=== PATIENT | female | born 1940 | race Caucasian/White ===

== ENCOUNTER 2022-09-29 07:28 | Day surgery (SDC) | payer MEDICARE, BC ==
[~2022-09-29] VITALS: Ht 162.6 cm; Wt 59.0 kg
[2022-09-29 07:45] VITALS: BP 113/57
[2022-09-29] MEDS ORDERED: fentaNYL/PF 50MCG/1 ML 2ML syringe ONE (07:51)
[2022-09-29] MEDS ORDERED: MIDAZolam 1 MG/ML 5ML VIAL ONE (07:51)
[2022-09-29] MEDS ORDERED: ATOR40TA PO (07:55)
[2022-09-29] MEDS ORDERED: NITR0.4T48 SL (07:56)
[2022-09-29] MEDS ORDERED: ATOR20TA66 PO (07:57)
[2022-09-29] MEDS ORDERED: IBAN150T21 PO ×2 (07:58→07:59)
[2022-09-29 09:10] VITALS: BP 130/70
[2022-09-29 09:20] VITALS: BP 120/64
[2022-09-29 09:30] VITALS: BP 130/75
[2022-09-29 09:40] VITALS: BP 119/64
== END 2022-09-29 09:45 | disposition home or self-care (01) ==
LOC: GI LAB 07:28
PROVIDERS: ATTEND Specialist
DX: K59.00 Constipation, unspecified (principal); D12.8 Benign neoplasm of rectum; K64.8 Other hemorrhoids; Z86.010 Personal history of colon polyps; Z88.0 Allergy status to penicillin; Z88.5 Allergy status to narcotic agent; Z80.0 Family history of malignant neoplasm of digestive organs
CPT/HCPCS: 45385; C1889; G0500; J2250; J3010; J7030; Z7512; 88305; 99152; 99153; A4620

== ENCOUNTER 2024-01-24 08:08 | Emergency (ER) | payer MEDICARE, BC ==
[~2024-01-24] VITALS: Ht 162.6 cm; Wt 56.5 kg
[~2024-01-24 08:08] MED LIST: ATOR20TA66 PO; IBAN150T21 PO; NITR0.4T48 SL
[2024-01-24 08:11] VITALS: TEMP 99
[2024-01-24] MEDS ORDERED: pantoprazole 40 MG vial IV ONE (09:15)
[2024-01-24] MEDS: ondansetron/PF 4mg/2ml inj IM ONE (09:23)
[2024-01-24] MEDS: pantoprazole 40mg Tablet.DR PO ONE (09:49)
[2024-01-24 10:01] LABS: BASOPHILS % (AUTO) 0.4 % (0-1); EOSINOPHILS % (AUTO) 0.1 % (0-6); HEMATOCRIT 39.2 % (35.0-45.0); HEMOGLOBIN 13.2 g/dl (12.0-16.0); LYMPHOCYTES # (AUTO) 1.5 X10'3 (1.1-4.8); LYMPHOCYTES % (AUTO) 28.6 % (21-51); MEAN CORPUSCULAR HEMOGLOBIN 32.6 PG (27.0-31.0); MEAN CORPUSCULAR HGB CONC 33.5 g/dL (33.0-36.5); MEAN CORPUSCULAR VOLUME 97.1 FL (78-98); MEAN PLATELET VOLUME 7.7 FL (7.4-10.4); MONOCYTES # (AUTO) 0.5 X10'3 (0-0.9); MONOCYTES % (AUTO) 9.1 % (2-12); NEUTROPHILS # (AUTO) 3.2 X10'3 (1.8-7.7); NEUTROPHILS % (AUTO) 61.8 % (42-75); PLATELET COUNT 168 X10'3 (140-440); RED BLOOD COUNT 4.04 X10'6 (4.20-5.60); RED CELL DISTRIBUTION WIDTH 12.7 % (11.5-14.5); WHITE BLOOD COUNT 5.1 X10'3 (4.5-11.0)
[2024-01-24 10:13] LABS: BILIRUBIN,URINE NEGATIVE (Neg); CLARITY,URINE CLEAR (Clear); COLOR,URINE YELLOW (Yellow); GLUCOSE, URINE NEGATIVE (Neg); KETONES,URINE NEGATIVE (Neg); LEUKOCYTE ESTERASE ,URINE NEGATIVE (Neg); NITRITES, URINE NEGATIVE (Neg); OCCULT BLOOD,URINE SMALL (Neg); PH,URINE 6.5 (4.8-8.0); PROTEIN,URINE NEGATIVE (Neg); UROBILINOGEN,URINE 0.2 E.U/dL (0.2-1.0)
[2024-01-24 10:14] LABS: UA COLLECTION TYPE CLN CATCH MIDSTREAM
[2024-01-24 10:21] LABS: ALANINE AMINOTRANSFERASE 84 U/L (12-78); ALBUMIN 3.5 G/DL (3.4-5.0); ALKALINE PHOSPHATASE 79 IU/L (46-116); ANION GAP 8 (8-16); ASPARTATE AMINO TRANSFERASE 63 U/L (10-37); BILIRUBIN,TOTAL 0.2 MG/DL (0.1-1.0); BLOOD UREA NITROGEN 13 MG/DL (7-18); BUN/CREATININE RATIO 19.4 (10.0-20.0); CALCIUM 9.4 MG/DL (8.5-10.1); CHLORIDE 99 MMOL/L (99-107); CREATININE 0.67 MG/DL (0.40-0.90); GLUCOSE 114 MG/DL (70-104); SODIUM 135 MMOL/L (135-145); TOTAL CARBON DIOXIDE 28.2 MMOL/L (24-32); TOTAL PROTEIN 7.1 G/DL (6.4-8.2); eCRCL 57 ML/MIN; eGFR 84 ML/MIN
[2024-01-24 10:25] LABS: LIPASE 47 U/L (16-77)
[2024-01-24 10:29] LABS: RBC,URINE 20-50 /HPF (0-2)
[2024-01-24 10:30] LABS: MUCUS STRANDS MODERATE /LPF (Neg); WBC,URINE 0-4 /HPF (0-4)
[2024-01-24 10:31] LABS: BACTERIA,URINE NONE SEEN /HPF (Neg); SQUAMOUS EPITHELIAL CELL,UR FEW /LPF (FEW); TRANSITIONAL EPI CELLS,URINE FEW /HPF
[2024-01-24] MEDS ORDERED: ONDA4TAB12 PO (10:41)
[2024-01-24] MEDS ORDERED: PANT-47 PO (10:44)
[2024-01-24] MEDS ORDERED: ACET-1008 PO (10:44)
[2024-01-24 10:48] VITALS: BP 102/62; PULSE 69; RESP 14; O2SAT 100
[2024-01-24 10:59] LABS: RENAL CELLS, URINE FEW /HPF
[2024-01-24 11:00] LABS: COARSE GRANULAR CAST 0-3 /LPF (NEGATIVE)
== END 2024-01-24 10:51 | disposition home or self-care (01) ==
LOC: ER 08:08
DX: B34.9 Viral infection, unspecified (principal); R50.9 Fever, unspecified; Z88.0 Allergy status to penicillin; Z88.8 Allergy status to other drugs, medicaments and biological substances; Z20.822 Contact with and (suspected) exposure to COVID-19
CPT/HCPCS: 36415; 71046; 80053; 81001; 83690; 84484; 85025; 87502; 87503; 87811; 96372; 99284; J2405

== ENCOUNTER 2024-09-14 12:58 | Emergency (ER) | payer MEDICARE, BC ==
[~2024-09-14] VITALS: Ht 162.6 cm; Wt 55.5 kg
[~2024-09-14 12:58] MED LIST changes: +ACET-1008 PO; +ONDA-243 PO; +PANT-47 PO
[2024-09-14] MEDS ORDERED: clindamycin (14:37)
[2024-09-14] MEDS ORDERED: SULF1TAB49 PO (14:37)
[2024-09-14] MEDS ORDERED: CLIN-214 PO (14:37)
[2024-09-14] MEDS ORDERED: IBUP-1984 PO (14:38)
[2024-09-14 15:01] VITALS: BP 129/64; PULSE 75; RESP 17; TEMP 98.6; O2SAT 99
[2024-09-16] MEDS ORDERED: DOXY-243 PO (10:44)
== END 2024-09-14 15:02 | disposition home or self-care (01) ==
LOC: ER 12:59
DX: S61.431A Puncture wound without foreign body of right hand, initial encounter (principal); Z88.0 Allergy status to penicillin; Z88.5 Allergy status to narcotic agent; W55.01XA Bitten by cat, initial encounter; Y93.89 Activity, other specified; Y92.89 Other specified places as the place of occurrence of the external cause; Y99.8 Other external cause status
CPT/HCPCS: 99283

== ENCOUNTER 2025-02-17 06:35 | Emergency (ER) | payer MEDICARE, BC ==
[~2025-02-17] VITALS: Ht 162.6 cm; Wt 44.7 kg
[~2025-02-17 06:35] MED LIST changes: -ACET-1008 PO; -NITR0.4T48 SL; -ONDA-243 PO; -PANT-47 PO
--- NOTE | 2025-02-17 07:21 | Physician Documentation ---
History of Present Illness ~ Chief Complaint: Urinary Symptoms Stated Complaint: UTI Time Seen by MD: 07:05 Primary Medical Doctor: Dr. RED HPI 84-year-old female presenting with urinary symptoms. She states that for the past 6-7 days she has had a lot of urinary urgency and frequency. She also states that when she does go to urinate it is very difficult and very little uri ne will come out. She denies any burning on urination. Denies any fever, chills or any other associated symptoms. The patient was seen at a emergency department in [place] while vacationing there five days ago. Over there she was started on Bactrim which she has been taking but she states that her symptoms have not been improving. Medication Reconciliation Allergies: Coded Allergies: Penicillins (Unverified Allergy, Unknown, 09/14/24) codeine (Unverified Allergy, Unknown, 09/14/24) Scheduled Atorvastatin Calcium (Atorvastatin Calcium), 1 TAB PO DAILY, (Reported) Ibandronate Sodium (Ibandronate Sodium), 1 TAB PO Q30D, (Reported) Past Medical History Past Medical History: No Pertinent History Past Surgical History: noncontributory Lives In: Home Occupation: retired Review of Systems All Other Systems at this time: Reviewed and Negative Physical Exam Vital Signs: Temperature: 97.8, Source: Temporal, Heart Rate: 53, Respiratory Rate: 15, BP: 108/64, Pulse Oximetry: 97, Weight: 44.700 General Appearance I have reviewed the triage vitals. CONST: Well developed and well nourished. In no acute distress HENT: Head Atraumatic EYES: Pupils are equal, round and reactive to light. Normal conjunctiva NECK: Normal range of motion. Supple. CARDIO: Normal rate and regular rhythm. No murmurs, rubs, or gallops. S1, S2. PULM/CHEST: No respiratory distress. Lungs clear to auscultation. No wheeze ABD: Soft and nontender. Nondistended. Bowel sounds normal. No guarding. : Exam deferred MSK: No edema. No deformity. NEURO: Alert and oriented to person, place and time. Moving all extremities SKIN: Warm and dry. PSYCH: Normal mood and affect. Good eye contact. Progress Results/Orders Results/Orders Completed Orders - DILIP CASTRO MD BMP (02/17/25 07:28) Cbc/Diff (02/17/25 07:28) Ua W/Microscopic, Cult If Ind (02/17/25 07:35) Vital Signs 02/17/25 02/17/25 06:40 07:18 Temp 97.8 Pulse 56 53 Resp 15 15 B/P (MAP) 110/56 108/64 (79) Pulse Ox 100 97 Laboratory Tests Test 02/17/25 07:35 02/17/25 07:37 Urine Specimen Description Urinal Urine Color Yellow Urine Clarity Clear Urine pH 6.0 Urine Specific [place] >=1.030 Urine Protein Negative Urine Glucose (UA) Negative Urine Ketones Trace H Urine Occult Blood Moderate H Urine Nitrite Negative Urine Bilirubin Negative Urine Urobilinogen 0.2 Urine Leukocyte Esterase Negative Urine RBC 3-10 Urine WBC 0-4 Urine Squamous Epithelial Cells None seen Urine Transitional Epithelial Cells Moderate Urine Bacteria Few Urine Fine Granular Casts 0-3 Urine Mucus Few Urine Culture Indicated Not ind Volume Urine Centrifuged 10 ml Urine Comment White Blood Count 5.0 Red Blood Count 3.90 L Hemoglobin 12.5 Hematocrit 37.4 Mean Corpuscular Volume 95.7 Mean Corpuscular Hemoglobin 32.1 H Mean Corpuscular Hemoglobin Concent 33.5 Red Cell Distribution Width 13.3 Platelet Count 185 Mean Platelet Volume 7.9 Neutrophils (%) (Auto) 42.6 Lymphocytes (%) (Auto) 43.2 Monocytes (%) (Auto) 11.4 Eosinophils (%) (Auto) 2.1 Basophils (%) (Auto) 0.7 Neutrophils # (Auto) 2.1 Lymphocytes # (Auto) 2.2 Monocytes # (Auto) 0.6 Eosinophils # (Auto) 0.1 Basophils # (Auto) 0.0 CBC Comment Sodium Level 140 Potassium Level 5.2 H Chloride Level 107 Carbon Dioxide Level 27.5 Anion Gap 6 L Blood Urea Nitrogen 12 Creatinine 0.97 H Estimated GFR/1.73 m2 55 BUN/Creatinine Ratio 12.4 Glucose Level 96 Calcium Level 9.0 Albumin 3.6 Chemistry Comments Medical Decision Making Additional Comment 84-year-old female presenting with an acute urinary tract infection that has been resistant to Bactrim. I did contact the hospital in [place] where the patient was previously seen. They did confirm that her urine culture was positive for E coli but they did not do any sensitivities. I advised the patient to stop the Bactrim and instead I will prescribe her nitrofurantoin. I did check a CBC and BMP in the patient has good kidney function and no elevation of her WBC count. Potassium is borderline high however still within normal limits. Given that she is 84 and high risk and has failed treatment with Bactrim I did offer the patient inpatient admission for treatment of her UTI however the patient feels well, her vitals are normal and she declined. I advised the patient to take this medication as prescribed and drink plenty of fluids. Monitor symptoms for improvement and resolution. Follow up with PCP in the next 1-2 weeks. Return to the ED with any acutely worsening symptoms. Departure Disposition: HOME / SELF CARE / HOMELESS Impression: Primary Impression: Acute urinary tract infection Discharge Instructions: Urinary Tract Infection, Adult Additional Instructions: Please take your medication as prescribed. Drink plenty of fluids including cranberry juice. Monitor your symptoms for improvement and resolution. Follow up with her primary care physician in the next 1-2 weeks. Return to the ED with any acutely worsening symptoms. Referrals: NO PRIMARY CARE PROVIDER (PCP) Prescriptions Nitrofurantoin Macrocrystal (Nitrofurantoin) 100 Mg Capsule 1 CAP PO Q12H for 7 Days, #14 CAP 0 Refills Prov: DILIP CASTRO MD 02/17/25 Signature Scribe Signature: 1 Attestation: 1 DILIP CASTRO MD Feb 17, 2025 07:21
[2025-02-17 07:55] LABS: BILIRUBIN,URINE NEGATIVE (Neg); CLARITY,URINE CLEAR (Clear); COLOR,URINE YELLOW (Yellow); GLUCOSE, URINE NEGATIVE (Neg); KETONES,URINE TRACE mg/dl (Neg); LEUKOCYTE ESTERASE ,URINE NEGATIVE (Neg); NITRITES, URINE NEGATIVE (Neg); OCCULT BLOOD,URINE MODERATE (Neg); PROTEIN,URINE NEGATIVE (Neg); UROBILINOGEN,URINE 0.2 E.U/dL (0.2-1.0)
[2025-02-17 07:56] LABS: UA COLLECTION TYPE URINAL
[2025-02-17 07:57] LABS: BASOPHILS % (AUTO) 0.7 % (0-1); EOSINOPHILS # (AUTO) 0.1 X10'3 (0-0.9); EOSINOPHILS % (AUTO) 2.1 % (0-6); HEMATOCRIT 37.4 % (35.0-45.0); HEMOGLOBIN 12.5 g/dl (12.0-16.0); LYMPHOCYTES # (AUTO) 2.2 X10'3 (1.1-4.8); LYMPHOCYTES % (AUTO) 43.2 % (21-51); MEAN CORPUSCULAR HEMOGLOBIN 32.1 PG (27.0-31.0); MEAN CORPUSCULAR HGB CONC 33.5 g/dL (33.0-36.5); MEAN CORPUSCULAR VOLUME 95.7 FL (78-98); MEAN PLATELET VOLUME 7.9 FL (7.4-10.4); MONOCYTES # (AUTO) 0.6 X10'3 (0-0.9); MONOCYTES % (AUTO) 11.4 % (2-12); NEUTROPHILS # (AUTO) 2.1 X10'3 (1.8-7.7); NEUTROPHILS % (AUTO) 42.6 % (42-75); PLATELET COUNT 185 X10'3 (140-440); RED CELL DISTRIBUTION WIDTH 13.3 % (11.5-14.5)
[2025-02-17 07:58] LABS: ALBUMIN 3.6 G/DL (3.4-5.0); ANION GAP 6 (8-16); BLOOD UREA NITROGEN 12 MG/DL (7-18); BUN/CREATININE RATIO 12.4 (10.0-20.0); CHLORIDE 107 MMOL/L (99-107); CREATININE 0.97 MG/DL (0.40-0.90); GLUCOSE 96 MG/DL (70-104); POTASSIUM 5.2 MMOL/L (3.5-5.1); SODIUM 140 MMOL/L (135-145); TOTAL CARBON DIOXIDE 27.5 MMOL/L (24-32); eCRCL 32 ML/MIN; eGFR 55 ML/MIN
[2025-02-17 08:08] LABS: BACTERIA,URINE FEW /HPF (Neg); FINE GRANULAR CAST 0-3 /LPF (NEGATIVE); MUCUS STRANDS FEW /LPF (Neg); SQUAMOUS EPITHELIAL CELL,UR NONE SEEN /LPF (FEW); TRANSITIONAL EPI CELLS,URINE MODERATE /HPF; WBC,URINE 0-4 /HPF (0-4)
[2025-02-17] MEDS ORDERED: NITR100C PO (08:48)
[2025-02-17 08:55] VITALS: BP 123/61; PULSE 54; RESP 16; TEMP 97.8; O2SAT 94
== END 2025-02-17 09:00 | disposition home or self-care (01) ==
LOC: ER 06:36
DX: N39.0 Urinary tract infection, site not specified (principal); Z88.0 Allergy status to penicillin; Z88.5 Allergy status to narcotic agent; Z79.899 Other long term (current) drug therapy
CPT/HCPCS: 36415; 80048; 81001; 85025; 99283